=== PATIENT | female | born 1990 | race American Indian/Alaskan Native ===

== ENCOUNTER 2019-01-19 23:38 | Inpatient (IN) | payer MEDICAID ==
[2019-01-19] MEDS ORDERED: LACTATED RINGERS 1,000 ML ONE (23:42)
[2019-01-20] MEDS ORDERED: SUBLIMAZE IV PRN (00:03)
[2019-01-20] MEDS ORDERED: BRETHINE SUB-Q PRN (00:03)
[2019-01-20] MEDS ORDERED: MINERAL OIL PO PRN (00:03)
[2019-01-20] MEDS ORDERED: XYLOCAINE 2% INFILTRATI ONE (00:03)
[2019-01-20] MEDS ORDERED: AMPICILLIN/NS 2 GM/100 ML 2 GM/100 ML BAG IV ONE (00:03)
[2019-01-20] MEDS ORDERED: BRETHINE IVP PRN (00:03)
[2019-01-20] MEDS ORDERED: SUBLIMAZE ONE (00:06)
[2019-01-20] MEDS ORDERED: LACTATED RINGERS 1,000 ML IV SCH (01:00)
[2019-01-20] MEDS ORDERED: PITOCin/NS 20 UNIT/1000ML DRIP 20 UNITS/1,000 ML BAG IV SCH (01:00)
--- NOTE | 2019-01-20 01:03 | History and Physical Report ---
History of Present Illness Date of examination: 01/20/19 Date of admission: 01/20/19 00:03 Chief complaint: I'm in labor History of present illness: Pt is a 28 year old who presents with complaint of contractions in labor at 37 weeks EGA with EDC 02/07/19. Pt entered care at 10 weeks. Her course was complicated by trichomonas infection acquired during the as well as HSV. Pt was on Valtrex from 35 weeks gestation. Of note patient underwent I&D of Bartholins Gland cyst on yesterday morning. Past History Past Medical History: no pertinent history Past Surgical History: no surgical history [employer] History: herpes, trichomonas Family/Genetic History: none Social history: single - Obstetrical History Expected Date of Delivery: 02/08/19 Actual Gestation: 37 Week(s) 2 Day(s) : 3 Para: 2 Number of Living Children: 2 Medications and Allergies Allergies Allergy/AdvReac Type Severity Reaction Status Date / Time No Known Allergies Allergy Verified 01/19/19 18:09 Active Meds: Active Medications Ephedrine Sulfate (Ephedrine Sulfate) 10 mg IV Q2M PRN PRN Reason: Hypotension Fentanyl (Sublimaze) 100 mcg IV Q2H PRN PRN Reason: Labor Pain Oxytocin/Sodium Chloride (Pitocin/Ns 20 Unit/1000ml Drip) 20 units in 1,000 mls @ 125 mls/hr IV DIRECT CHELSEA Last Admin: 01/20/19 00:55 Dose: 125 mls/hr Documented by: Lactated Ringer's (Lactated Ringers) 1,000 mls @ 125 mls/hr IV DIRECT CHELSEA Ampicillin Sodium (Ampicillin/Ns 2 Gm/100 Ml) 2 gm in 100 mls @ 100 mls/hr IV ONCE ONE; Protocol Stop: 01/20/19 01:02 Ampicillin Sodium (Ampicillin/Ns 1 Gm/50 Ml) 1 gm in 50 mls @ 100 mls/hr IV Q4HR CHELSEA; Protocol Mineral Oil (Mineral Oil) 30 ml PO QHS PRN PRN Reason: Constipation Terbutaline Sulfate (Brethine) 0.25 mg SUB-Q ONCE PRN PRN Reason: Hyperstimulation/Hypertonicity Terbutaline Sulfate (Brethine) 0.25 mg IVP ONCE PRN PRN Reason: Hyperstimulation/Hypertonicity Review of Systems All systems: negative Genitourinary: leakage of fluid, pelvic pain, contractions Rectal Exam: deferred - Vital Signs Vital signs: Vital Signs Resp 18 01/20/19 00:12 Temp Pulse Resp BP Pulse Ox 96 H 18 139/59 100 01/20/19 00:57 01/20/19 00:12 01/20/19 00:49 01/20/19 00:57 - Physical Exam Breasts: Positive: deferred Cardiovascular: Regular rate, Normal S1, Normal S2, Other Lungs: Positive: Clear to auscultation, Normal air movement Abdomen: Positive: normal appearance, soft, normal bowel sounds. Negative: distention, tenderness Genitourinary (Female): Positive: normal perenium, other (swollen right labia) Vulva: both: normal Vagina: Positive: normal moisture. Negative: discharge Cervix: Negative: lesion, discharge Uterus: Positive: normal size, normal contour Adnexa: both: normal Anus/Rectum: Positive: normal perianal skin, heme negative. Negative: rectal mass, hemorrhoids Extremities: Deep Tendon Reflex Grade: Normal +2 - Obstetrical FHR: auscultation normal Cervical Dilatation: 7 Cervical Effacement Percentage: 90 station: +1 Uterine Contraction Pattern: Regular Results All other labs normal. Assessment and Plan Pt is a 28 year G3 in active labor. Will admit. GBS is still pending so will treat empirically. Anticipate .
[2019-01-20 01:04] LABS: Hemoglobin 11.2 gm/dl (10.1-14.3); Mean Corpuscular HGB Conc 33 % (30-34); Mean Corpuscular Volume 87 fl (79-97); Platelet Count 248 K/mm3 (140-440); Red Blood Count 3.93 M/mm3 (3.65-5.03); Red Cell Distribution Width 15.3 % (13.2-15.2)
--- NOTE | 2019-01-20 01:08 | Procedure Note ---
OB Delivery Note - Delivery Date of Delivery: 01/20/19 Surgeon: TAYLA BAZAN Estimated blood loss: 200cc - Vaginal Delivery presentation: vertex Delivery position: OA Intrapartum events: precipitous labor- <3hr Delivery induction: none Delivery monitor: external FHT, external uterine Route of delivery: Delivery placenta: spontaneous Delivery cord: 3 umbilical vessels Episiotomy: none Delivery laceration: 1st degree Delivery repair: vicryl Anesthesia: none Delivery comments: Viable female delivered over intact perineum with no nuchal cord at 0027. Infant placed on maternal abdomen. cord clamped and cut when done pulsing. Placenta delivered spontaneously and intact with 3vc. Laceration repaired with 2.0 vicryl. Pt tolerated procedure well. - A at 1 minute: 8 at 5 minutes: 9 Infant Gender: Female (6 pounds 13 ounces/3091grams)
[2019-01-20] MEDS: NORCO 5/325 PO PRN ×2 (01:31→09:22)
[2019-01-20] MEDS ORDERED: BENADRYL PO PRN (03:14)
[2019-01-20] MEDS ORDERED: MILK OF MAGNESIA PO PRN (03:14)
[2019-01-20] MEDS ORDERED: TUCKS PAD TP PRN (03:14)
[2019-01-20] MEDS ORDERED: PHENERGAN PO PRN (03:14)
[2019-01-20] MEDS ORDERED: LANSINOH TP PRN (03:14)
[2019-01-20] MEDS ORDERED: SODIUM CHLORIDE FLUSH SYRINGE 10 ML IV NR (03:14)
[2019-01-20] MEDS ORDERED: ZOFRAN IV PRN (03:14)
[2019-01-20] MEDS ORDERED: NORCO 5/325 PO PRN (03:14)
[2019-01-20] MEDS ORDERED: PHENERGAN PR PRN (03:14)
[2019-01-20] MEDS ORDERED: TYLENOL PO PRN (03:14)
[2019-01-20] MEDS ORDERED: DULCOLAX PR PRN (03:14)
[2019-01-20] MEDS: IBUPROFEN PO SCH ×3 (03:51→18:10)
[2019-01-20] MEDS ORDERED: AMPICILLIN/NS 1 GM/50 ML 1 GM/50 ML BAG IV SCH (04:07)
[2019-01-20] MEDS: PRENATAL VITAMIN PO SCH (11:16)
[2019-01-20] MEDS: FEOSOL PO SCH (11:16)
[2019-01-20] MEDS: COLACE PO SCH (11:16)
[2019-01-20 13:47] LABS: Hematocrit 28.6 % (30.3-42.9); Hemoglobin 9.6 gm/dl (10.1-14.3)
[2019-01-21] MEDS: IBUPROFEN PO SCH ×4 (00:13→20:14)
[2019-01-21] MEDS: COLACE PO SCH ×3 (00:13→22:17)
[2019-01-21] MEDS: FEOSOL PO SCH ×3 (00:14→22:17)
[2019-01-21] MEDS: PRENATAL VITAMIN PO SCH (10:07)
--- NOTE | 2019-01-21 20:16 | Progress Note ---
Assessment and Plan PPD 1 s/p . Pt with new diagnosis of syphillis and advised to follow up with health department for management, but will order penicillin now if available. Pt made aware of diagnosis. Otherwise doing well. Plan for discharge on tomorrow. Subjective - Subjective Date of service: 01/21/19 Interval history: Pt is a 28 year old who presents with complaint of contractions in labor at 37 weeks EGA with EDC 02/07/19. Pt entered care at 10 weeks. Her course was complicated by trichomonas infection acquired during the as well as HSV. Pt had RPR drawn on admission which was reactive as well as her syphillis antibodies. pt was definitively negative at screening. Patient reports: appetite normal, voiding normally, pain well controlled, ambulating normally [place]: doing well Objective - Vital Signs Latest vital signs: Vital Signs Temp Pulse Resp BP BP Pulse Ox 01/21/19 16:40 98.4 F 79 14 108/65 97 01/21/19 08:58 97.8 F 81 16 103/65 98 01/21/19 00:00 98.6 F 69 16 114/78 Intake and Output 01/21/19 01/21/19 01/21/19 06:59 14:59 22:59 Intake Total 480 2320 720 Balance 480 2320 720 Intake: Oral 480 2320 720 Other: Total, Intake Amount 240 240 360 Voiding Method Toilet Toilet # Voids 1 1 Void 1 1 1 - Exam Breasts: Present: deferred Cardiovascular: Present: Regular rate, Normal S1, Normal S2 Lungs: Present: Clear to auscultation Abdomen: Present: normal appearance, soft, normal bowel sounds Vulva: both: normal Uterus: Present: firm, fundal height below umbilicus Extremities: Present: normal Deep Tendon Reflex Grade: Normal +2
--- NOTE | 2019-01-21 20:25 | Discharge Summary ---
Providers - Providers Date of Admission: 01/20/19 00:03 Date of discharge: 01/22/19 Attending physician: TAYLA BAZAN Primary care physician: TAYLA BAZAN Hospitalization Reason for admission: active labor Delivery: Episiotomy: none Laceration: 1st degree Other procedures: none Discharge diagnosis: IUP at term delivered baby: female Hospital course: New diagnosis of syphillis Condition at discharge: Good Disposition: DC-01 TO HOME OR SELFCARE Plan - Discharge Medications Prescriptions: Ibuprofen [Motrin] 800 mg PO Q8HR PRN #40 tablet PRN Reason: Pain, Moderate (4-6) HYDROcodone/APAP 5-325 [[place] 5/325] 1 each PO Q6HR PRN #20 tablet PRN Reason: Pain - Provider Discharge Summary Activity: routine, no sex for 6 weeks, no heavy lifting 4 weeks, no strenuous exercise Diet: routine Instructions: routine Additional instructions: [] Smoking cessation referral if applicable(refer to patient education folder for contact #) [] Refer to [facility] Booklet Call your doctor immediately for: * Fever > 100.5 * Heavy vaginal bleeding ( >1 pad per hour) * Severe persistent headache * Shortness of breath * Reddened, hot, painful area to leg or breast * Drainage or odor from incision. * Keep incision clean and dry at all times and follow doctor's instructions regarding bathing/showering - Follow up plan Follow up: TAYLA BAZAN MD [Primary Care Provider] - 6 Weeks
[2019-01-21] MEDS ORDERED: BICILLIN L-A IM ONE (21:00)
[2019-01-22] MEDS: IBUPROFEN PO SCH ×3 (01:39→12:01)
[2019-01-22 10:10] VITALS: BP 107/61
[2019-01-22] MEDS: COLACE PO SCH (10:19)
[2019-01-22] MEDS: PRENATAL VITAMIN PO SCH (10:19)
[2019-01-22] MEDS: FEOSOL PO SCH (10:19)
== END 2019-01-22 17:15 | disposition home or self-care (01) | DRG 774 ==
LOC: TRG 23:38 → LD 01-20 00:03 → TRG 01-20 00:03 → OB 01-20 03:13
PROVIDERS: ADMIT Obstetrics & Gynecology; ATTEND Obstetrics & Gynecology
PROC: 10E0XZZ Delivery of Products of Conception, External Approach (ICD-10-PCS; principal; 2019-01-20)
PROC: 0HQ9XZZ Repair Perineum Skin, External Approach (ICD-10-PCS; 2019-01-20)
DX: O62.3 Precipitate labor (principal); O98.12 Syphilis complicating childbirth; O98.52 Other viral diseases complicating childbirth; B00.9 Herpesviral infection, unspecified; O70.0 First degree perineal laceration during delivery; Z3A.37 37 weeks gestation of pregnancy; Z37.0 Single live birth
CPT/HCPCS: 36415; 85014; 85018; 85027; 86592; 86593; 86780; 86850; 86900; 86901; G0378; J0561; J2590; J3010; J7120